=== PATIENT | female | born 1955 | race Caucasian/White ===

== ENCOUNTER 2016-10-02 03:47 | Observation (INO) | payer OTHER ==
[~2016-10-02] VITALS: Ht 165.1 cm; Wt 84.4 kg
[2016-10-02 04:17] LABS: RED BLOOD COUNT 4.11 M/UL (4.00-5.10); WHITE BLOOD COUNT 7.4 K/UL (4.5-11.0)
[2016-10-02 04:45] LABS: BUN/CREATININE RATIO 20 (0-10)
[2016-10-02] MEDS ORDERED: TENORMIN 50 MG50 MG PO (08:39)
[2016-10-02] MEDS ORDERED: LISINOPRIL40 MG PO (08:40)
[2016-10-02] MEDS ORDERED: HYDROCHLOROTHIA25 MG PO (08:40)
[2016-10-02] MEDS ORDERED: COREG 25MG TAB25 MG PO (08:41)
[2016-10-02] MEDS ORDERED: GLUCOPHAGE500 MG PO (08:41)
[2016-10-02] MEDS ORDERED: NEURONTIN 400400 MG PO (08:42)
[2016-10-02] MEDS ORDERED: LIBRAX CAPSULE1 EACH PO (08:42)
[2016-10-02] MEDS ORDERED: LORCET PLUS 7.1 EACH PO (08:43)
[2016-10-02] MEDS ORDERED: CATAPRES 0.1MG0.1 MG PO (08:43)
[2016-10-02] MEDS ORDERED: PREDNISONE 5 MG5 MG PO (08:44)
[2016-10-02] MEDS ORDERED: HYDRALAZINE PO (08:44)
[2016-10-03] MEDS ORDERED: NORVASC 5 MG TAB5 MG PO (13:41)
[2016-10-03] MEDS ORDERED: COZAAR100 MG PO (13:45)
== END 2016-10-03 14:15 | disposition home or self-care (01) ==
LOC: ER1 03:47 → ZEROF 05:05 → PROG CARE 07:45
PROVIDERS: Emergency Medicine; ADMIT Internal Medicine
DX: I16.0 Hypertensive urgency (principal); R07.9 Chest pain, unspecified; E11.9 Type 2 diabetes mellitus without complications; G47.33 Obstructive sleep apnea (adult) (pediatric); I25.10 Atherosclerotic heart disease of native coronary artery without angina pectoris; I25.2 Old myocardial infarction; F17.210 Nicotine dependence, cigarettes, uncomplicated; Z79.899 Other long term (current) drug therapy; Z90.49 Acquired absence of other specified parts of digestive tract; Z90.710 Acquired absence of both cervix and uterus
CPT/HCPCS: 36415; 70450; 71010; 80053; 80061; 82384; 82550; 82553; 82962; 83036; 83874; 83880; 84443; 84484; 85025; 93005; 96374; 96375; 99285; G0378; J0360; J2270; J2405

== ENCOUNTER → 2020-08-08 | Outpatient (CLI) | payer MEDICARE, OTHER ==
[~2020-08-08] MED LIST: CATAPRES 0.1MG0.1 MG PO; COREG 25MG TAB25 MG PO; COZAAR100 MG PO; GLUCOPHAGE500 MG PO; HYDRALAZINE PO; HYDROCHLOROTHIA25 MG PO; LIBRAX CAPSULE1 EACH PO; LISINOPRIL40 MG PO; LORCET PLUS 7.1 EACH PO; NEURONTIN 400400 MG PO; NORVASC 5 MG TAB5 MG PO; PHENERGAN 25 MG25 M1 PO; PREDNISONE 5 MG5 MG PO; PROTONIX40 MG PO; TENORMIN 50 MG50 MG PO; ZOFRAN4 MG PO
[2020-08-08 11:07] LABS: BUN/CREATININE RATIO 18 (0-10)
[2020-08-10 13:14] LABS: CHOLESTEROL, TOTAL 143 mg/dL (100-199); HDL SIZE 9.2 nm (>=9.2); HDL-C 44 mg/dL (>39); LARGE HDL-P 4.7 umol/L (>=4.8); LARGE VLDL-P 7.3 nmol/L (<=2.7); LDL SIZE 20.7 nm (>20.5); LDL SIZE 20.7 nm (>=20.8); LDL-C 70 mg/dL (0-99); LDL-P 758 nmol/L (<1000); LP-IR SCORE 59 (<=45); SMALL LDL-P 312 nmol/L (<=527); TRIGLYCERIDES 168 mg/dL (0-149); VLDL SIZE 52.2 nm (<=46.6)
== END ==
LOC: LAB 10:10
PROVIDERS: Emergency Medicine
DX: I10 Essential (primary) hypertension (principal); E78.2 Mixed hyperlipidemia; N18.30 Chronic kidney disease, stage 3 unspecified; E11.65 Type 2 diabetes mellitus with hyperglycemia
CPT/HCPCS: 36415; 80053; 80061; 83036; 83704

== ENCOUNTER → 2021-07-25 | Outpatient (CLI) | payer MEDICARE, OTHER | LOC: RAD 12:56 | DX: Z98.1 Arthrodesis status (principal); M47.816 Spondylosis without myelopathy or radiculopathy, lumbar region | CPT/HCPCS: 72100 ==

== ENCOUNTER → 2021-09-17 | Outpatient (CLI) | payer MEDICARE, OTHER ==
[2021-09-17 13:08] LABS: HEMOGLOBIN 11.1 gm/dl (12.3-15.3); RED BLOOD COUNT 4.22 M/UL (4.00-5.10); WHITE BLOOD COUNT 5.1 K/UL (4.5-11.0)
[2021-09-17 13:25] LABS: BUN/CREATININE RATIO 14 (0-10)
== END ==
LOC: LAB 12:20
PROVIDERS: Emergency Medicine
DX: I10 Essential (primary) hypertension (principal); E78.2 Mixed hyperlipidemia; I69.998 Other sequelae following unspecified cerebrovascular disease; E11.42 Type 2 diabetes mellitus with diabetic polyneuropathy
CPT/HCPCS: 36415; 80053; 83036; 84443; 84550; 85025